=== PATIENT | female | born 1975 | race African-American/Black ===

== ENCOUNTER 2024-12-06 19:29 | Emergency (ER) | payer MEDICAID ==
[~2024-12-06] VITALS: Ht 167.6 cm; Wt 91.0 kg
[2024-12-06 19:45] VITALS: O2SAT 99
[2024-12-06] MEDS ORDERED: DICL100G58 TP (21:16)
[2024-12-06 22:08] VITALS: BP 137/87; PULSE 70; RESP 16; TEMP 36.7; O2SAT 100
== END 2024-12-06 22:09 | disposition home or self-care (01) ==
LOC: ER 19:29
DX: S46.811A Strain of other muscles, fascia and tendons at shoulder and upper arm level, right arm, initial encounter (principal); X58.XXXA Exposure to other specified factors, initial encounter; Y93.89 Activity, other specified; Y92.89 Other specified places as the place of occurrence of the external cause; Y99.8 Other external cause status
CPT/HCPCS: 99283

== ENCOUNTER 2025-03-02 11:33 | Emergency (ER) | payer MEDICAID ==
[~2025-03-02] VITALS: Ht 167.6 cm; Wt 91.0 kg
[~2025-03-02 11:33] MED LIST: DICL100G58 TP
[2025-03-02 11:43] VITALS: O2SAT 99
[2025-03-02 14:39] LABS: CLARITY URINE CLEAR (CLEAR); COLOR URINE YELLOW (YELLOW); GLUCOSE URINE NEGATIVE (NEGATIVE); KETONES URINE NEGATIVE (NEGATIVE); LEUKOCYTE ESTERASE URINE NEGATIVE (NEGATIVE); NITRITE URINE NEGATIVE (NEGATIVE); OCCULT BLOOD URINE NEGATIVE (NEGATIVE); PH URINE 6.0 (4.5-8.0); PROTEIN URINE NEGATIVE (NEGATIVE); SPECIFIC GRAVITY URINE 1.020 (1.005-1.030); UROBILINOGEN URINE 0.2 E.U./dL (0.2-1.0)
[2025-03-02] MEDS ORDERED: IBUP-2030 MT (14:57)
[2025-03-02 15:23] VITALS: BP 134/69; PULSE 71; RESP 18; TEMP 36.9; O2SAT 99
== END 2025-03-02 15:24 | disposition home or self-care (01) ==
LOC: ER 11:33
DX: R10.84 Generalized abdominal pain (principal); M54.9 Dorsalgia, unspecified; R30.0 Dysuria
CPT/HCPCS: 81003; 99283; Z7610

== ENCOUNTER 2025-03-19 11:20 | Emergency (ER) | payer MEDICAID ==
[~2025-03-19] VITALS: Ht 167.6 cm; Wt 91.0 kg
[~2025-03-19 11:20] MED LIST changes: +IBUP-2030 MT
[2025-03-19 11:30] VITALS: O2SAT 98
[2025-03-19 11:57] LABS: BASOPHILS % 0.8 % (0.0-2.0); EOSINOPHILS % 2.9 % (0.0-5.0); HEMATOCRIT. 36.9 % (36.0-48.0); HEMOGLOBIN. 12.3 g/dL (12.0-16.0); LYMPHOCYTES % 57.2 % (20.0-50.0); MEAN PLATELET VOLUME 7.0 fl (7.4-10.4); MONOCYTES % 11.8 % (2.0-8.0); NEUTROPHILS % 27.3 % (40.0-76.0); PLATELET 304 x1000/uL (130-400); RED BLOOD CELL COUNT 4.20 mill/uL (4.2-5.4); RED CELL DISTRIBUTION WIDTH 12.6 % (11.6-14.6)
[2025-03-19 12:11] LABS: HCG SCREEN NEGATIVE
[2025-03-19 12:15] LABS: CREATININE 0.7 mg/dL (0.6-1.0)
[2025-03-19 12:16] LABS: TROPONIN I HIGH SENSITIVITY < 4 ng/L (3.0-34); UREA NITROGEN BLOOD 14 mg/dL (9-23)
[2025-03-19 12:17] LABS: ASPARTATE AMINOTRANSFERASE 24 IU/L (<34)
[2025-03-19 12:18] LABS: BILIRUBIN DIRECT 0.2 mg/dL (<=3.0); BILIRUBIN TOTAL 0.5 mg/dL (0.1-1.0); PROTEIN TOTAL 7.5 g/dL (6.0-8.3)
[2025-03-19 12:39] LABS: CLARITY URINE CLEAR (CLEAR); COLOR URINE YELLOW (YELLOW); GLUCOSE URINE NEGATIVE (NEGATIVE); KETONES URINE NEGATIVE (NEGATIVE); LEUKOCYTE ESTERASE URINE NEGATIVE (NEGATIVE); NITRITE URINE NEGATIVE (NEGATIVE); OCCULT BLOOD URINE NEGATIVE (NEGATIVE); PH URINE 5.5 (4.5-8.0); PROTEIN URINE NEGATIVE (NEGATIVE); SPECIFIC GRAVITY URINE 1.026 (1.005-1.030); UROBILINOGEN URINE 0.2 E.U./dL (0.2-1.0)
[2025-03-19] MEDS: KETOROLAC 30MG/ML VIAL IM ONE (12:59)
[2025-03-19] MEDS: ONDANSETRON HCL 4MG/2ML INJ IM ONE (13:00)
[2025-03-19 14:11] VITALS: BP 109/61; PULSE 76; RESP 14; TEMP 36.9; O2SAT 99
== END 2025-03-19 14:18 | disposition home or self-care (01) ==
LOC: ER 11:20
DX: R10.84 Generalized abdominal pain (principal); R30.0 Dysuria; M54.50 Low back pain, unspecified; Z98.890 Other specified postprocedural states
CPT/HCPCS: 80076; 80048; 81003; 81025; 84703; 83690; 85025; 84484; 36415; 74176; 93005; 96372; 99285; J1885; J2405; Z7610; A4606